=== PATIENT | female | born 2000 | race Caucasian/White ===

== ENCOUNTER 2025-03-03 11:40 | Emergency (ER) | payer BC ==
[2025-03-03 11:45] VITALS: BP 148/95; PULSE 101
[2025-03-03] MEDS: Bacitracin/Neomycin/Polymyxin B Oint 0.9 GM U/D Packet TOP ONE (13:07)
== END 2025-03-03 13:30 | disposition home or self-care (01) ==
LOC: LL.ED 11:40
DX: S91.112A Laceration without foreign body of left great toe without damage to nail, initial encounter (principal); Z88.8 Allergy status to other drugs, medicaments and biological substances; Z79.899 Other long term (current) drug therapy; Z88.2 Allergy status to sulfonamides; W26.8XXA Contact with other sharp object(s), not elsewhere classified, initial encounter
CPT/HCPCS: 12001; 12002; 99282; 99283; J2003